=== PATIENT | female | born 1955 | race Caucasian/White ===

== ENCOUNTER 2020-01-14 15:30 | Outpatient (CLI) | payer OTHER | END 2020-01-14 15:31 | disposition home or self-care (01) | LOC: COV 15:30 | PROVIDERS: ATTEND Ophthalmology | DX: Z01.812 Encounter for preprocedural laboratory examination (principal); H25.812 Combined forms of age-related cataract, left eye; Z20.828 Contact with and (suspected) exposure to other viral communicable diseases ==

== ENCOUNTER 2020-01-17 07:02 | Day surgery (SDC) | payer OTHER ==
[~2020-01-17 07:02] MED LIST: KETOROLAC 0.45% OPHTH DROPS ONE; PHENYLEPHRINE 2.5% OPHTH 2 ML DROPS ONE; PROPARACAINE 0.5% OPHTH DROPS 15 ML ONE
[2020-01-17] MEDS ORDERED: EPINEPHrine 1 MG/ML AMP ONE (07:23)
[2020-01-17] MEDS ORDERED: TRIAMCIN/MOXIFLOX OPHTHALMIC 0.6 ML VIAL IO ONE ×2 (07:23→08:47)
[2020-01-17] MEDS ORDERED: BRIMONIDINE 0.2% OPHTH DROPS 5 ML ONE (07:23)
[2020-01-17] MEDS ORDERED: VANCOMYCIN OPHTHALMI 8MG/0.8ML 8 MG/0.8 ML SYRINGE IO ONE (07:24)
[2020-01-17] MEDS ORDERED: TIMOLOL 0.5% OPHTH DROPS ONE (07:24)
[2020-01-17] MEDS ORDERED: BSS/LIDOCAINE/EPINEPHRINE 1 ML SYRINGE ONE (07:24)
--- NOTE | 2020-01-17 07:36 | ANESTHESIA ---
Pre-Anesthesia VS, & Labs - Diagnosis L senile combined cataract - Procedure Extraction L cataract w/IOL - NPO Last Fluid Intake: am sips H20 - Is Patient ?: No - Lab Results Lab results reviewed: Yes Anes History & Medical History - Anesthetic History Anesthesia Complications: reports: No previous complications Family history of Anesthesia Complications: Denies Family history of Malignant Hyperthermia: Denies - Medical History Cardiovascular: reports: Valve disorder (prolapsed mitral valve), Other Pulmonary: reports: None Gastrointestinal: reports: None Urinary: reports: None, Other (nephrectomy r/t cancer) Neuro: reports: None Musculoskeletal: reports: None Endocrine/Autoimmune: reports: Type 2 diabetes Blood Disorders: reports: None Skin: reports: None History of Cancer?: Yes - Surgical History Urologic: Nephrectomy Orthopedic: Other (OA) Exam General: Oriented x3, Cooperative Dental: WNL Mouth Opening: Greater than 4 Fingerbreadths Neck Mobility: Normal Mallampati classification: I Thyromental Distance: 4-6 cm Respiratory: Lungs clear, Normal breath sounds, No respiratory distress Cardiovascular: Regular rate Neurological: Normal speech Mental/Cognitive Status: Alert/Oriented X3, Normal for patient Cognitive Status: Within normal limits Plan Anesthesia Type: MAC Consent for Procedure(s) Verified and Reviewed: Yes Code Status: Attempt Resuscitation ASA classification: 2-Mild systemic disease Is this case an emergency?: No
[2020-01-17] MEDS ORDERED: MIDAZOLAM 2 MG/2 ML VIAL IVP ONE (08:34)
[2020-01-17] MEDS ORDERED: BRIMONIDINE 0.2% OPHTH DROPS 5 ML OPTH ONE (08:45)
[2020-01-17] MEDS ORDERED: EPINEPHrine 1 MG/ML AMP IR ONE (08:46)
[2020-01-17] MEDS ORDERED: CHONDR SULF/HYALURONATE SYRINGE IO ONE (08:46)
[2020-01-17] MEDS ORDERED: TIMOLOL 0.5% OPHTH DROPS OPTH ONE (08:46)
[2020-01-17] MEDS ORDERED: BSS/LIDOCAINE/EPINEPHRINE 1 ML SYRINGE IO ONE (08:47)
[2020-01-17] MEDS ORDERED: PROPARACAINE 0.5% OPHTH DROPS 15 ML EACHEYE ONE (08:47)
[2020-01-17] MEDS ORDERED: LACTATED RINGERS 200 ML IV ONE (08:55)
[2020-01-17 09:11] VITALS: BP 113/63
--- NOTE | 2020-01-17 09:12 | ANESTHESIA POST OP EVALUATION ---
Anesthesia Post Eval - Post Anesthesia Eval Vitals: Last Vital Signs Temp 36.4 C L 01/17/20 09:09 Pulse 69 01/17/20 09:09 Resp 16 01/17/20 09:09 BP 113/63 01/17/20 09:09 Pulse Ox 100 01/17/20 09:09 CV Function Including HR & BP: positive: Stable Pain Control: positive: Satisfactory Nausea & Vomiting: positive: Negative Mental Status: positive: Baseline Respiratory Status: Airway Patent Hydration Status: Satisfactory Anesthesia Complications: positive: None
--- NOTE | 2020-01-17 12:02 | OPERATIVE REPORT ---
DATE OF SERVICE: 01/17/2020 Physician: Vernon Juares MD PREOPERATIVE DIAGNOSIS: Visually significant cataract, left eye. This was her first cataract surger y. POSTOPERATIVE DIAGNOSIS: Visually significant cataract, left eye. This was her first cataract surge ry. PROCEDURE: Phacoemulsification with posterior chamber intraocular lens implant, left eye. SURGEON: Vernon Juares MD ANESTHESIA: Monitored anesthesia care. COMPLICATIONS: None. OPERATIVE INDICATIONS: This is a 64-year-old woman with progressive vision loss in the left eye due to 2+ nuclear sclerotic and 3+ cortical cataract. Best corrected visual acuity was 20/30, with glare to hand motion vision in the left eye. Indications for surgery are overall decrease in vision, diff iculty seeing words on a computer screen, difficulty reading, difficulty seeing words, closed caption or game scores on TV, difficulty driving at night because of headlights from other vehicles, difficu lty with glare or bright lights in any situation, and difficulty tracking a golf ball. She was conse nted at length concerning risks and benefits of cataract surgery, after which she expressed a desire to proceed with surgery. OPERATIVE PROCEDURE: The patient was taken to OR #3 and placed under monitored anesthesia care. A s urgical timeout was conducted confirming correct patient, correct procedure, and correct surgical sit e. She was given topical anesthesia, and prepped and draped in the usual sterile fashion. The eye w as entered at the 6 and 3 o'clock positions. Intracameral Shugarcaine was injected into the anterior chamber, followed by Viscoat. A continuous-tear curvilinear capsulorrhexis was performed. The nucl eus was hydrodissected and phacoemulsified. The cortex was evacuated using automated infusion and as piration. Provisc was injected in the capsular bag, and a 21.5 diopter intraocular lens was inserted into the bag. Infusion and aspiration was used to evacuate the viscoelastic materials. The eye was inflated to physiologic pressure using balanced salt solution and found to be watertight. Approxima tely 0.25 mL of a mixture of triamcinolone and moxifloxacin was injected transsclerally into the vitr eous in the inferotemporal quadrant. An additional 0.55 mL of a mixture of triamcinolone, moxifloxac in, and vancomycin was injected subconjunctivally in the superior quadrant for infection and inflamma tion prophylaxis. Wound integrity was checked with Weck-Tiesha sponges. Patient was taken from the Ope rating Room in good condition and given postoperative instructions. TD: 01/17/2020 09:05
== END 2020-01-17 07:03 | disposition home or self-care (01) ==
LOC: SDS 07:02
PROVIDERS: ATTEND Ophthalmology
DX: E11.36 Type 2 diabetes mellitus with diabetic cataract (principal); H25.812 Combined forms of age-related cataract, left eye; I34.1 Nonrheumatic mitral (valve) prolapse; E03.9 Hypothyroidism, unspecified; F32.9 Major depressive disorder, single episode, unspecified; H91.90 Unspecified hearing loss, unspecified ear; M19.90 Unspecified osteoarthritis, unspecified site; Z79.4 Long term (current) use of insulin; Z90.5 Acquired absence of kidney; Z79.899 Other long term (current) drug therapy
CPT/HCPCS: 66984; A9270; J3490; J7120; V2632

== ENCOUNTER 2020-04-28 19:13 | Outpatient (CLI) | payer OTHER | END 2020-04-28 19:14 | disposition home or self-care (01) | LOC: COV 19:13 | PROVIDERS: ATTEND Ophthalmology | DX: Z01.812 Encounter for preprocedural laboratory examination (principal); H25.811 Combined forms of age-related cataract, right eye; E11.9 Type 2 diabetes mellitus without complications; Z79.4 Long term (current) use of insulin; Z20.822 Contact with and (suspected) exposure to COVID-19 ==

== ENCOUNTER 2020-05-01 06:21 | Day surgery (SDC) | payer OTHER ==
[2020-05-01] MEDS ORDERED: LACTATED RINGERS 500 ML IV ONE (06:25)
[2020-05-01] MEDS ORDERED: PHENYLEPHRINE 2.5% OPHTH 2 ML DROPS ONE (06:26)
[2020-05-01] MEDS ORDERED: KETOROLAC 0.45% OPHTH DROPS ONE (06:26)
[2020-05-01] MEDS ORDERED: PROPARACAINE 0.5% OPHTH DROPS 15 ML ONE (06:27)
[2020-05-01] MEDS ORDERED: CYCLOPENTOLATE 2% OPHTH DROPS 2 ML RIGHTEYE ONE (07:05)
[2020-05-01] MEDS ORDERED: METOCLOPRAMIDE 10 MG/2 ML VIAL IVP PRN (07:16)
[2020-05-01] MEDS ORDERED: HYDROmorphone 0.5 MG/0.5 ML SYRINGE IVP PRN (07:16)
[2020-05-01] MEDS ORDERED: fentaNYL 100 MCG/2 ML VIAL IVP PRN (07:16)
[2020-05-01] MEDS ORDERED: NALOXONE 0.4 MG/ML VIAL IVP PRN (07:16)
[2020-05-01] MEDS ORDERED: MORPHINE 2 MG/ML CARPUJECT IVP PRN (07:16)
[2020-05-01] MEDS ORDERED: ATROPINE ABBOJECT 1 MG/10 ML SYRINGE IVP PRN (07:16)
[2020-05-01] MEDS ORDERED: ONDANSETRON 4 MG/2 ML VIAL IVP PRN (07:16)
[2020-05-01] MEDS ORDERED: ePHEDrine 50 MG/ML VIAL IVP PRN (07:16)
--- NOTE | 2020-05-01 07:16 | ANESTHESIA ---
Pre-Anesthesia VS, & Labs - Diagnosis right cataract - Procedure right CATIOL Vital Signs: Temp Pulse Resp BP Pulse Ox 36.7 C 72 12 123/67 95 05/01/20 06:26 05/01/20 06:26 05/01/20 06:26 05/01/20 06:26 05/01/20 06:26 Height: 5 ft 5 in Weight (kg): 88.7 kg Body Mass Index: 32.5 BMI Classification: Obese - NPO >8 hours - Is Patient ?: No - Lab Results Current Lab Results: Laboratory Tests 05/01/20 06:42: POC Whole Bld Glucose 444 H Lab results reviewed: Yes Home Medications and Allergies Home Medications: Ambulatory Orders Aspirin [Aspirin EC] 81 mg PO DAILY 05/01/20 Citalopram Hydrobromide [Celexa] 20 mg PO DAILY 05/01/20 Insulin Aspart [NovoLOG] 10 unit SUBQ 05/01/20 Insulin Glargine [Lantus Solostar] 30 units SQ BID 05/01/20 Levothyroxine [Synthroid] 125 mcg PO DAILY 05/01/20 Simvastatin [Zocor] 20 mg PO DAILY 05/01/20 Aspirin [Aspirin EC] 81 mg PO DAILY 05/01/20 Citalopram Hydrobromide [Celexa] 20 mg PO DAILY 05/01/20 Insulin Aspart [NovoLOG] 10 unit SUBQ 05/01/20 Insulin Glargine [Lantus Solostar] 30 units SQ BID 05/01/20 Levothyroxine [Synthroid] 125 mcg PO DAILY 05/01/20 Simvastatin [Zocor] 20 mg PO DAILY 05/01/20 Allergies/Adverse Reactions: Allergies Allergy/AdvReac Type Severity Reaction Status Date / Time latex Allergy Rash Verified 05/01/20 06:48 Anes History & Medical History - Anesthetic History Anesthesia Complications: reports: No previous complications Family history of Anesthesia Complications: Denies Family history of Malignant Hyperthermia: Denies - Medical History Cardiovascular: reports: Valve disorder, Other Pulmonary: reports: None Gastrointestinal: reports: None Urinary: reports: None, Other Neuro: reports: None Musculoskeletal: reports: None Endocrine/Autoimmune: reports: Type 2 diabetes Blood Disorders: reports: None Skin: reports: None - Surgical History Cardiothoracic: Other Urologic: Nephrectomy Orthopedic: Other Exam General: Alert, Oriented x3, Cooperative, No acute distress Dental: WNL Plan Anesthesia Type: MAC Consent for Procedure(s) Verified and Reviewed: Yes Code Status: Attempt Resuscitation ASA classification: 3-Severe systemic disease Is this case an emergency?: No
[2020-05-01] MEDS ORDERED: MIDAZOLAM 2 MG/2 ML VIAL ONE (07:25)
[2020-05-01] MEDS ORDERED: VANCOMYCIN OPHTHALMI 8MG/0.8ML 8 MG/0.8 ML SYRINGE IO ONE ×2 (07:30→09:57)
[2020-05-01] MEDS ORDERED: CHONDR SULF/HYALURONATE SYRINGE IO ONE (07:30)
[2020-05-01] MEDS ORDERED: TRIAMCIN/MOXIFLOX OPHTHALMIC 0.6 ML VIAL IO ONE ×2 (07:30→09:57)
[2020-05-01] MEDS ORDERED: TIMOLOL 0.5% OPHTH DROPS OPTH ONE (07:30)
[2020-05-01] MEDS ORDERED: EPINEPHrine 1 MG/ML AMP IR ONE (07:30)
[2020-05-01] MEDS ORDERED: PROPARACAINE 0.5% OPHTH DROPS 15 ML EACHEYE ONE (07:30)
[2020-05-01] MEDS ORDERED: BRIMONIDINE 0.2% OPHTH DROPS 5 ML OPTH ONE (07:30)
[2020-05-01] MEDS ORDERED: BSS/LIDOCAINE/EPINEPHRINE 1 ML SYRINGE IO ONE (07:30)
[2020-05-01] MEDS ORDERED: LACTATED RINGERS 250 ML IV ONE (07:47)
[2020-05-01 07:50] VITALS: BP 107/49
[2020-05-01] MEDS ORDERED: LACTATED RINGERS 1,000 ML IV SCH (08:00)
--- NOTE | 2020-05-01 09:03 | ANESTHESIA POST OP EVALUATION ---
Anesthesia Post Eval - Post Anesthesia Eval Vitals: Last Vital Signs Temp 36.2 C L 05/01/20 07:48 Pulse 78 05/01/20 07:48 Resp 19 05/01/20 07:48 BP 107/49 L 05/01/20 07:48 Pulse Ox 99 05/01/20 07:48 CV Function Including HR & BP: positive: Stable Pain Control: positive: Satisfactory Nausea & Vomiting: positive: Negative Mental Status: positive: Baseline Respiratory Status: Airway Patent Hydration Status: Satisfactory Anesthesia Complications: positive: None
--- NOTE | 2020-05-01 09:38 | OPERATIVE REPORT ---
DATE OF SERVICE: 05/01/2020 Physician: Vernon Juares MD PREOPERATIVE DIAGNOSIS: Visually significant cataract, right eye. Cataract surgery was performed on the left eye on 01/17/2020. POSTOPERATIVE DIAGNOSIS: Visually significant cataract, right eye. Cataract surgery was performed o n the left eye on 01/17/2020. PROCEDURE: Phacoemulsification with posterior chamber intraocular lens implant, right eye. SURGEON: Vernon Juares MD. ANESTHESIA: Monitored anesthesia care. COMPLICATIONS: None. OPERATIVE INDICATIONS: This is a 65-year-old woman with progressive vision loss in the right eye due to 2+ nuclear sclerotic cataract. Best corrected visual acuity was 20/25 with glare to 20/60 in the right eye. Indications for surgery are overall decrease in vision, difficulty seeing words on a com puter screen, difficulty reading, difficulty seeing street signs, difficulty driving in low light or at night, difficulty driving at night because of headlights from other vehicles, and difficulty with glare or bright lights in any situation. She was consented at length concerning risks and benefits o f cataract surgery, after which she expressed a desire to proceed with surgery. OPERATIVE PROCEDURE: The patient was taken into OR #3 and placed under monitored anesthesia care. A surgical timeout was conducted, confirming correct patient, correct procedure, and correct surgical site. She was given topical anesthesia and prepped and draped in usual sterile fashion. The eye was entered at the 12 and 9 o'clock positions. Intracameral Shugarcaine was injected into the anterior chamber followed by Viscoat. A continuous-tear curvilinear capsulorrhexis was performed. The nucleu s was hydrodissected and phacoemulsified. The cortex was evacuated using automated infusion and aspi ration. Provisc was injected in the capsular bag and a 21.5 diopter intraocular lens inserted in the bag. Infusion and aspiration were used to evacuate the viscoelastic materials. The eye was inflate d to physiologic pressure, using a balanced salt solution and found to be watertight. Approximately 0.25 mL of a mixture of triamcinolone and moxifloxacin was injected transsclerally into the vitreous in the inferotemporal quadrant. An additional 0.55 mL of a mixture of triamcinolone, moxifloxacin, a nd vancomycin was injected subconjunctivally in the superior quadrant for infection and inflammation prophylaxis. Wound integrity was checked with Weck-Tiesha sponges. The patient was taken from the oper ating room in good condition and given postoperative instructions. TD: 05/01/2020 08:00
[2020-05-01] MEDS ORDERED: BSS/LIDOCAINE/EPINEPHRINE 1 ML SYRINGE ONE (09:57)
[2020-05-01] MEDS ORDERED: EPINEPHrine 1 MG/ML AMP ONE (09:57)
[2020-05-01] MEDS ORDERED: TIMOLOL 0.5% OPHTH DROPS ONE (09:57)
[2020-05-01] MEDS ORDERED: BRIMONIDINE 0.2% OPHTH DROPS 5 ML ONE (09:57)
== END 2020-05-01 06:22 | disposition home or self-care (01) ==
LOC: SDS 06:21
PROVIDERS: ATTEND Ophthalmology
DX: E11.36 Type 2 diabetes mellitus with diabetic cataract (principal); H25.811 Combined forms of age-related cataract, right eye; Z79.4 Long term (current) use of insulin; Z98.42 Cataract extraction status, left eye; E03.9 Hypothyroidism, unspecified; E66.9 Obesity, unspecified; Z68.32 Body mass index [BMI] 32.0-32.9, adult
CPT/HCPCS: 66984; A9270; J3490; J7120; V2632